=== PATIENT | female | born 1975 | race Hispanic/Latino ===

== ENCOUNTER 2018-05-13 08:34 | Inpatient (IN) | payer OTHER ==
[2018-05-13] MEDS ORDERED: NACL 0.45% 500 ML IV SCH (09:00)
[2018-05-13] MEDS ORDERED: NACL 0.9% 500 ML 500 ML ONE (09:52)
[2018-05-13] MEDS: NACL 0.9% 500 ML 500 ML IV SCH ×2 (10:05→21:00)
[2018-05-13] MEDS ORDERED: NITROSTAT SL ONE (10:20)
[2018-05-13] MEDS ORDERED: ATROPINE 0.1% (CARDIAC) ONE (10:20)
[2018-05-13] MEDS ORDERED: TYLENOL PO PRN ×2 (11:08→20:39)
[2018-05-13] MEDS ORDERED: ZOFRAN IV PRN ×2 (11:08→20:39)
--- NOTE | 2018-05-13 11:08 | Short Stay Summary ---
Short Stay Documentation Date of service: 05/13/18 - History H&P: obtained from office - Allergies and Medications Current Medications: Allergies sulfamethoxazole [From Bactrim] Adverse Reaction (Verified 05/13/18 09:07) Nausea tramadol [From Ultram] Adverse Reaction (Verified 05/13/18 09:07) Nausea trimethoprim [From Bactrim] Adverse Reaction (Verified 05/13/18 09:07) Nausea Home Medications Medication Instructions Recorded Confirmed Last Taken Type Aspirin [Aspirin BABY CHEW TAB] 81 mg PO DAILY 05/13/18 05/13/18 05/12/18 History 81mg Baclofen 1.5 tab PO TID 05/13/18 05/13/18 05/12/18 History 1.5 tab Bumetanide [Bumex 1 mg tab] 1 mg PO DAILY 05/13/18 05/13/18 05/12/18 History [address] [Depakote Dr] 2 tab PO BID 05/13/18 05/13/18 05/12/18 History 2 tabs Gabapentin [Neurontin] 100 mg PO TID 05/13/18 05/13/18 05/12/18 History 100mg Levothyroxine [Synthroid] 50 mcg PO QAM 05/13/18 05/13/18 05/12/18 History 50mcg Metoprolol [Lopressor TAB] 50 mg PO BID 05/13/18 05/13/18 05/12/18 History 50mg Multivit with Iron,Minerals 1 tab PO DAILY 05/13/18 05/13/18 05/12/18 History [Spectravite Senior] 81mg QUEtiapine [SEROquel] 300 mg PO HS 05/13/18 05/13/18 05/12/18 History 300mg Triamterene/Hydrochlorothiazid 1 tab PO DAILY 05/13/18 05/13/18 05/12/18 History [Triamterene-Hctz 37.5-25 mg Tb] 1 tab Vilazodone HCl [Viibryd] 40 mg PO DAILY 05/13/18 05/13/18 05/12/18 History 40mg clonazePAM [Clonazepam] 0.5 mg PO BID 05/13/18 05/13/18 05/12/18 History 0.5mg lamoTRIgine [LaMICtal] 300 mg PO BID 05/13/18 05/13/18 05/12/18 History 300mg traZODone [Desyrel] 100 mg PO HS 05/13/18 05/13/18 05/12/18 History 100mg Active Medications Sodium Chloride (Nacl 0.9% 500 Ml) 500 mls @ 50 mls/hr IV DIRECT HEMANT Last Admin: 05/13/18 10:05 Dose: 50 mls/hr Documented by: - Physical exam General appearance: no acute distress Integumentary: no rash HEENT: Atraumatic Lungs: Clear to auscultation Breasts: deferred Heart: Regular rate Gastrointestinal: normal Female Genitourinary: deferred Rectal Exam: deferred Extremities: no ischemia Neurological: Normal gait - Brief post op/procedure progress note Date of procedure: 05/13/18 Pre-op diagnosis: Syncope Post-op diagnosis: same Procedure: Tilt table test Anesthesia: none Findings: See report Surgeon: KARAN YANEZ Estimated blood loss: none Pathology: none Condition: stable - Hospital course Hospital course: Uneventful - Disposition Condition at discharge: Good Disposition: DC-01 TO HOME OR SELFCARE Short Stay Discharge Plan Activity: advance as tolerated Weight Bearing Status: Weight Bear as Tolerated Diet: regular Follow up with: PRIMARY CAREMD [Primary Care Provider] - 7 Days
[2018-05-13] MEDS ORDERED: SUBLIMAZE IV ONE (12:38)
[2018-05-13 13:24] LABS: Basophils % (Auto) 0.7 % (0.0-1.8); Eosinophils # (Auto) 0.1 K/mm3 (0.0-0.4); Eosinophils % (Auto) 0.8 % (0.0-4.3); Hematocrit 33.3 % (30.3-42.9); Hemoglobin 11.6 gm/dl (10.1-14.3); Lymphocytes # (Auto) 2.2 K/mm3 (1.2-5.4); Lymphocytes % (Auto) 32.3 % (13.4-35.0); Mean Corpuscular HGB Conc 35 % (30-34); Mean Corpuscular Volume 94 fl (79-97); Monocytes # (Auto) 1.1 K/mm3 (0.0-0.8); Monocytes % (Auto) 15.7 % (0.0-7.3); Platelet Count 227 K/mm3 (140-440); Red Blood Count 3.55 M/mm3 (3.65-5.03); Red Cell Distribution Width 13.9 % (13.2-15.2)
[2018-05-13 13:45] LABS: Alanine Aminotransferase 20 units/L (7-56); Albumin 3.3 g/dL (3.9-5); BUN/Creatinine Ratio 30; Blood Urea Nitrogen 21 mg/dL (7-17); Calcium 8.2 mg/dL (8.4-10.2); Hemolysis Index 21
--- NOTE | 2018-05-13 13:45 | Procedure Note ---
PROCEDURE: Tilt table test. INDICATION: Syncope. ORDERING PHYSICIAN: Gunner Irene MD DESCRIPTION OF PROCEDURE: After obtaining the consent, the patient was brought to the systems testing laboratory technician area and was secured on the tilt table test. Supine blood pressure was 134/83 with a supine heart rate of 74 beats per minute. The patient was tilted to 85 degrees from horizontal. One minute after tilting, her blood pressure was 141/79 with a heart rate of 77 beats per minute arguing against orthostatic hypotension. The patient was kept in the upright position for 10 minutes. At the end of the 10 minutes, her blood pressure was 131/83 with a heart rate of 79. She was then given 0.4 mg of sublingual nitroglycerin. Her lowest recorded blood pressure after nitroglycerin was 117/78 and the highest recorded heart rate was 88 beats per minute, sinus rhythm. The patient did not lose consciousness. IMPRESSION: This is a negative tilt table test with no evidence of a cardioinhibitory or vasodepressor response. Also, no evidence of orthostatic hypotension. RECOMMENDATION: Follow up with referring traffic recorder. JOB# [id number] CHLOE/ADRIAN
[2018-05-13] MEDS ORDERED: REGLAN IV ONE (15:03)
[2018-05-13] MEDS ORDERED: BENADRYL IV ONE (15:04)
[2018-05-13] MEDS ORDERED: DECADRON IV ONE (15:04)
[2018-05-13] MEDS ORDERED: TORADOL IV ONE (15:04)
--- NOTE | 2018-05-13 15:44 | Cat Scan Report ---
FINAL REPORT EXAM: CT HEAD/BRAIN WO CON HISTORY: syncope TECHNIQUE: CT examination of the head without IV contrast PRIORS: None. FINDINGS: No acute air-fluid level visualized in the included air-filled sinuses. Bone windows demonstrate no acute fracture. There is ventricular and sulcal prominence suggesting mild global cerebrocortical atrophy. The brain contains no mass, mass effect, hemorrhage, or acute infarct. There is no extra-axial intracranial bleed, brain bleed, or midline shift. IMPRESSION: No acute CVA, intracranial bleed, or brain mass
--- NOTE | 2018-05-13 15:45 | Emergency Department Report ---
ED General Adult HPI - General Chief complaint: Neuro Symptoms/Deficit Time Seen by Provider: 05/13/18 11:45 Source: RN notes reviewed, old records reviewed Mode of arrival: Stretcher Limitations: No Limitations - History of Present Illness Initial comments: Patient is a 42-year-old female past medical history of syncope who presents with syncopal episode after tilt table test. Patient was seen today for her syncopal episodes that she's had for the past month. She had tilt table test and then she had a syncopal event. She states that she is unable to open her eyes and that she has right neck pain. She also has a headache that is a 8 out 10 located to the front of her head. Nothing makes it better and nothing makes worse. Patient has no nausea no vomiting. Severity scale (0 -10): 10 - Related Data Home Medications Medication Instructions Recorded Confirmed Last Taken Aspirin [Aspirin BABY CHEW TAB] 81 mg PO DAILY 05/13/18 05/13/18 05/12/18 81mg Baclofen 1.5 tab PO TID 05/13/18 05/13/18 05/12/18 1.5 tab Bumetanide [Bumex 1 mg tab] 1 mg PO DAILY 05/13/18 05/13/18 05/12/18 1 tab Divalproex [Depleighton Mojica] 2 tab PO BID 05/13/18 05/13/18 05/12/18 2 tabs Gabapentin [Neurontin] 100 mg PO TID 05/13/18 05/13/18 05/12/18 100mg Levothyroxine [Synthroid] 50 mcg PO QAM 05/13/18 05/13/18 05/12/18 50mcg Metoprolol [Lopressor TAB] 50 mg PO BID 05/13/18 05/13/18 05/12/18 50mg Multivit with Iron,Minerals 1 tab PO DAILY 05/13/18 05/13/18 05/12/18 [Spectravite Senior] 81mg QUEtiapine [SEROquel] 300 mg PO HS 05/13/18 05/13/18 05/12/18 300mg Triamterene/Hydrochlorothiazid 1 tab PO DAILY 05/13/18 05/13/18 05/12/18 [Triamterene-Hctz 37.5-25 mg Tb] 1 tab Vilazodone HCl [Viibryd] 40 mg PO DAILY 05/13/18 05/13/18 05/12/18 40mg clonazePAM [Clonazepam] 0.5 mg PO BID 05/13/18 05/13/18 05/12/18 0.5mg lamoTRIgine [LaMICtal] 300 mg PO BID 05/13/18 05/13/18 05/12/18 300mg traZODone [Desyrel] 100 mg PO HS 05/13/18 05/13/18 05/12/18 100mg Allergies Allergy/AdvReac Type Severity Reaction Status Date / Time sulfamethoxazole AdvReac Nausea Verified 05/13/18 09:07 [From Bactrim] tramadol [From Ultram] AdvReac Nausea Verified 05/13/18 09:07 trimethoprim [From Bactrim] AdvReac Nausea Verified 05/13/18 09:07 ED Review of Systems ROS: Stated complaint: Other details as noted in HPI Constitutional: denies: chills, fever Eyes: denies: eye pain, eye discharge, vision change ENT: denies: ear pain, throat pain Respiratory: denies: cough, shortness of breath, wheezing Cardiovascular: denies: chest pain, palpitations Endocrine: no symptoms reported Gastrointestinal: denies: abdominal pain, nausea, diarrhea Genitourinary: denies: urgency, dysuria, discharge Musculoskeletal: myalgia. denies: back pain, joint swelling, arthralgia Skin: denies: rash, lesions Neurological: headache. denies: weakness, paresthesias Psychiatric: denies: anxiety, depression Hematological/Lymphatic: denies: easy bleeding, easy bruising ED Past Medical Hx - Past Medical History Hx Hypertension: Yes Hx Seizures: Yes - Social History Smoking Status: Current Every Day Smoker - Medications Home Medications: Home Medications Medication Instructions Recorded Confirmed Last Taken Type Aspirin [Aspirin BABY CHEW TAB] 81 mg PO DAILY 05/13/18 05/13/18 05/12/18 History 81mg Baclofen 1.5 tab PO TID 05/13/18 05/13/18 05/12/18 History 1.5 tab Bumetanide [Bumex 1 mg tab] 1 mg PO DAILY 05/13/18 05/13/18 05/12/18 History 1 tab Divalproex [Lizz Mojica] 2 tab PO BID 05/13/18 05/13/18 05/12/18 History 2 tabs Gabapentin [Neurontin] 100 mg PO TID 05/13/18 05/13/18 05/12/18 History 100mg Levothyroxine [Synthroid] 50 mcg PO QAM 05/13/18 05/13/18 05/12/18 History 50mcg Metoprolol [Lopressor TAB] 50 mg PO BID 05/13/18 05/13/18 05/12/18 History 50mg Multivit with Iron,Minerals 1 tab PO DAILY 05/13/18 05/13/18 05/12/18 History [Spectravite Senior] 81mg QUEtiapine [SEROquel] 300 mg PO HS 05/13/18 05/13/18 05/12/18 History 300mg Triamterene/Hydrochlorothiazid 1 tab PO DAILY 05/13/18 05/13/18 05/12/18 History [Triamterene-Hctz 37.5-25 mg Tb] 1 tab Vilazodone HCl [Viibryd] 40 mg PO DAILY 05/13/18 05/13/18 05/12/18 History 40mg clonazePAM [Clonazepam] 0.5 mg PO BID 05/13/18 05/13/18 05/12/18 History 0.5mg lamoTRIgine [LaMICtal] 300 mg PO BID 05/13/18 05/13/18 05/12/18 History 300mg traZODone [Desyrel] 100 mg PO HS 05/13/18 05/13/18 05/12/18 History 100mg ED Physical Exam - General Limitations: No Limitations General appearance: alert, in no apparent distress - Head Head exam: Present: atraumatic, normocephalic - Eye Eye exam: Present: normal appearance - ENT ENT exam: Present: mucous membranes moist - Neck Neck exam: Present: normal inspection - Respiratory Respiratory exam: Present: normal lung sounds bilaterally. Absent: respiratory distress - Cardiovascular Cardiovascular Exam: Present: regular rate, normal rhythm. Absent: systolic murmur, diastolic murmur, rubs, gallop - GI/Abdominal GI/Abdominal exam: Present: soft, normal bowel sounds - Extremities Exam Extremities exam: Present: normal inspection - Back Exam Back exam: Present: normal inspection - Neurological Exam Neurological exam: Present: alert, oriented X3 - Psychiatric Psychiatric exam: Present: normal affect, normal mood - Skin Skin exam: Present: warm, dry, intact, normal color. Absent: rash ED Course Vital Signs 05/13/18 05/13/18 05/13/18 09:19 09:29 11:31 Temperature 98.2 F Pulse Rate 74 73 Respiratory 20 18 Rate Respiratory 15 Rate [Back] Blood Pressure Blood Pressure 123/67 [Left] O2 Sat by Pulse 100 100 Oximetry 05/13/18 05/13/18 05/13/18 11:45 11:47 11:49 Temperature 97.7 F 97.7 F Pulse Rate 70 73 73 Respiratory 26 H 12 Rate Respiratory Rate [Back] Blood Pressure 127/72 127/72 Blood Pressure 127/72 [Left] O2 Sat by Pulse 96 100 100 Oximetry 05/13/18 05/13/18 05/13/18 12:00 12:15 12:31 Temperature Pulse Rate 81 77 78 Respiratory 8 L 13 11 L Rate Respiratory Rate [Back] Blood Pressure 130/81 130/81 127/72 Blood Pressure [Left] O2 Sat by Pulse 100 100 Oximetry 05/13/18 05/13/18 05/13/18 12:45 13:00 13:15 Temperature Pulse Rate 79 75 75 Respiratory 13 19 18 Rate Respiratory Rate [Back] Blood Pressure 127/72 118/63 118/63 Blood Pressure [Left] O2 Sat by Pulse 100 99 99 Oximetry 05/13/18 05/13/18 05/13/18 13:31 13:47 14:00 Temperature Pulse Rate 80 75 74 Respiratory 14 17 21 Rate Respiratory Rate [Back] Blood Pressure 130/81 130/81 110/65 Blood Pressure [Left] O2 Sat by Pulse 97 98 100 Oximetry 05/13/18 05/13/18 05/13/18 14:15 14:31 14:45 Temperature Pulse Rate 69 72 67 Respiratory 17 23 14 Rate Respiratory Rate [Back] Blood Pressure 110/65 118/63 118/63 Blood Pressure [Left] O2 Sat by Pulse 98 97 97 Oximetry 05/13/18 05/13/18 05/13/18 15:00 15:15 15:31 Temperature Pulse Rate 75 72 68 Respiratory 13 19 24 Rate Respiratory Rate [Back] Blood Pressure 111/67 111/67 110/65 Blood Pressure [Left] O2 Sat by Pulse 100 99 98 Oximetry ED Medical Decision Making - Lab Data Result diagrams: 05/13/18 13:07 05/13/18 13:07 Lab Results 05/13/18 05/13/18 Range/Units 13:07 13:07 WBC 6.9 (4.5-11.0) K/mm3 RBC 3.55 L (3.65-5.03) M/mm3 Hgb 11.6 (10.1-14.3) gm/dl Hct 33.3 (30.3-42.9) % MCV 94 (79-97) fl MCH 33 H (28-32) pg MCHC 35 H (30-34) % RDW 13.9 (13.2-15.2) % Plt Count 227 (140-440) K/mm3 Lymph % (Auto) 32.3 (13.4-35.0) % [place] % (Auto) 15.7 H (0.0-7.3) % Eos % (Auto) 0.8 (0.0-4.3) % Baso % (Auto) 0.7 (0.0-1.8) % Lymph # 2.2 (1.2-5.4) K/mm3 [place] # 1.1 H (0.0-0.8) K/mm3 Eos # 0.1 (0.0-0.4) K/mm3 Baso # 0.0 (0.0-0.1) K/mm3 Seg Neutrophils % 50.5 (40.0-70.0) % Seg Neutrophils # 3.5 (1.8-7.7) K/mm3 Sodium 140 (137-145) mmol/L Potassium 3.8 (3.6-5.0) mmol/L Chloride 104.1 (98-107) mmol/L Carbon Dioxide 27 (22-30) mmol/L Anion Gap 13 mmol/L BUN 21 H (7-17) mg/dL Creatinine 0.7 (0.7-1.2) mg/dL Estimated GFR > 60 ml/min BUN/Creatinine Ratio 30 % Glucose 74 (65-100) mg/dL Calcium 8.2 L (8.4-10.2) mg/dL Total Bilirubin 0.30 (0.1-1.2) mg/dL AST 19 (5-40) units/L ALT 20 (7-56) units/L Alkaline Phosphatase 40 (35-129) units/L Total Protein 5.1 L (6.3-8.2) g/dL Albumin 3.3 L (3.9-5) g/dL Albumin/Globulin Ratio 1.8 % - EKG Data -: EKG Interpreted by Me - EKG Data 05/13/18 16:00 Age he shows normal sinus rhythm no ST segment elevation or T wave inversion normal axis - Radiology Data Radiology results: report reviewed, image reviewed CT head: Shows no acute intercranial process - Medical Decision Making Cdx: Vasovagal syncope ddx: Stress reaction, electrolyte abnormality I will get ct head, IV pain meds, blood work and ekg Patient's blood work is unremarkable I will send patient home. Critical care attestation.: If time is entered above; I have spent that time in minutes in the direct care of this critically ill patient, excluding procedure time. ED Disposition Clinical Impression: Vasovagal syncope Disposition: DC-01 TO HOME OR SELFCARE Is pt being admited?: No Does the pt Need Aspirin: No Condition: Good Instructions: Syncope (ED) Referrals: PRIMARY CARE, [Referring] - 7 Days
[2018-05-13] MEDS ORDERED: NACL 0.9% 1000 ML 1,000 ML ONE (16:08)
[2018-05-13] MEDS ORDERED: NACL 0.9% 1000 ML 1,000 ML IV ONE (16:17)
--- NOTE | 2018-05-13 20:20 | Magnetic Resonance Report ---
FINAL REPORT EXAM: MR BRAIN WO CON HISTORY: left sided numbnessER INPATIENT TECHNIQUE: MRI brain: Axial T1, T2 , FLAIR, diffusion, and gradient echo axial Sagittal T1 PRIORS: CT of the head performed on the same day FINDINGS: The cerebral hemispheres appear normal without focal lesions. The ventricles and sulci appear normal for age. There are no abnormal extra-axial fluid collections. There is no restricted diffusion. There is no evidence of acute intracranial hemorrhage. The brainstem and cerebellum appear normal. The vis ualized orbits and visualized paranasal sinuses are unremarkable. IMPRESSION: Normal MRI of the brain without contrast.
--- NOTE | 2018-05-13 20:24 | Magnetic Resonance Report ---
FINAL REPORT EXAM: MR MRA/MRV NECK WO CON HISTORY: left sided weaknessER inpatient TECHNIQUE: 2-D and 3-D [id number] images of the neck were obtained from the thoracic inlet throu gh the [place] of [place]. MIP rotatory images were generated and viewed. PRIORS: None. FINDINGS: FINDINGS: The bilateral common carotid, internal carotid and external carotid arteries appear normal and patent. The vertebral arteries appear normal. There is no significant ICA stenosis. Soft tissues are unremarkable. IMPRESSION: Negative magnetic resonance angiogram of the neck.
--- NOTE | 2018-05-13 20:27 | Magnetic Resonance Report ---
FINAL REPORT EXAM: MR MRA/MRV HEAD WO CON HISTORY: left sided weaknessER INPATIENT TECHNIQUE: Magnetic resonance angiogram (MRA) 3-D [id number] (TOF) volume acquisitionof the circ le of [place] with axial source images. Multiple maximum intensity projection (MIP) images constructed . PRIORS: None. FINDINGS: There is normal flow within the bilateral internal carotid arteries. There is normal bifurcation into the middle and anterior cerebral arteries. There is no evidence of stenosis or occlusion of the larg e vessels or branch vessels. The vertebrobasilar system is within normal limits. There is no evidence of aneurysm. IMPRESSION: Normal magnetic resonance angiogram of the brain.
[2018-05-13] MEDS ORDERED: SODIUM CHLORIDE FLUSH SYRINGE 10 ML IV PRN (20:39)
[2018-05-13] MEDS ORDERED: DILAUDID IV PRN (20:39)
[2018-05-13] MEDS ORDERED: PERCOCET 5/325 PO PRN (20:39)
[2018-05-13] MEDS ORDERED: NON-FORMULARY (Vilazodone Hcl [Viibryd] 40 MG) PO SCH (21:00)
[2018-05-13] MEDS: LOVENOX SUB-Q SCH (21:01)
--- NOTE | 2018-05-13 21:15 | History and Physical Report ---
History of Present Illness Date of examination: 05/13/18 Date of admission: 05/13/18 16:50 Chief complaint: Passing out every month for the last 6 months Last episode was one week ago History of present illness: 42-year-old female with history of hypertension, seizure disorder, hypothyroidism and psychiatric problems comes in for passing out frequently for the last 6 months. Passed out about 6-8 times. Once while driving. Patient is advised not to drive. Patient had tilt table test which was negative. Patient had multiple MRIs of neck MRA brain MRI head MRA and head CT which are negative. No chest pain. No exacerbating or relieving factors. Past Medical History Hx Hypertension: Yes Hx Seizures: Yes Social History Smoking Status: Current Every Day Smoker Surgical history N/a Family history Htn - Medications Home Medications: Home Medications Medication Instructions Recorded Confirmed Last Taken Type Aspirin [Aspirin BABY CHEW TAB] 81 mg PO DAILY 05/13/18 05/13/18 05/12/18 History 81mg Baclofen 1.5 tab PO TID 05/13/18 05/13/18 05/12/18 History 1.5 tab Bumetanide [Bumex 1 mg tab] 1 mg PO DAILY 05/13/18 05/13/18 05/12/18 [address] [Depakote Dr] 2 tab PO BID 05/13/18 05/13/18 05/12/18 History 2 tabs Gabapentin [Neurontin] 100 mg PO TID 05/13/18 05/13/18 05/12/18 History 100mg Levothyroxine [Synthroid] 50 mcg PO QAM 05/13/18 05/13/18 05/12/18 History 50mcg Metoprolol [Lopressor TAB] 50 mg PO BID 05/13/18 05/13/18 05/12/18 History 50mg Multivit with Iron,Minerals 1 tab PO DAILY 05/13/18 05/13/18 05/12/18 History [Spectravite Senior] 81mg QUEtiapine [SEROquel] 300 mg PO HS 05/13/18 05/13/18 05/12/18 History 300mg Triamterene/Hydrochlorothiazid 1 tab PO DAILY 05/13/18 05/13/18 05/12/18 History [Triamterene-Hctz 37.5-25 mg Tb] 1 tab Vilazodone HCl [Viibryd] 40 mg PO DAILY 05/13/18 05/13/18 05/12/18 History 40mg clonazePAM [Clonazepam] 0.5 mg PO BID 05/13/18 05/13/18 05/12/18 History 0.5mg lamoTRIgine [LaMICtal] 300 mg PO BID 05/13/18 05/13/18 05/12/18 History 300mg traZODone [Desyrel] 100 mg PO HS 05/13/18 05/13/18 05/12/18 History 100mg Review of Systems ROS: Stated complaint: Other details as noted in HPI Constitutional: denies: chills, fever Eyes: denies: eye pain, eye discharge, vision change ENT: denies: ear pain, throat pain Respiratory: denies: cough, shortness of breath, wheezing Cardiovascular: denies: chest pain, palpitations Endocrine: no symptoms reported Gastrointestinal: denies: abdominal pain, nausea, diarrhea Genitourinary: denies: urgency, dysuria, discharge Musculoskeletal: myalgia. denies: back pain, joint swelling, arthralgia Skin: denies: rash, lesions Neurological: headache. denies: weakness, paresthesias Psychiatric: denies: anxiety, depression Hematological/Lymphatic: denies: easy bleeding, easy bruising Medications and Allergies Allergies Allergy/AdvReac Type Severity Reaction Status Date / Time sulfamethoxazole AdvReac Nausea Verified 05/13/18 09:07 [From Bactrim] tramadol [From Ultram] AdvReac Nausea Verified 05/13/18 09:07 trimethoprim [From Bactrim] AdvReac Nausea Verified 05/13/18 09:07 Home Medications Medication Instructions Recorded Confirmed Last Taken Type Aspirin [Aspirin BABY CHEW TAB] 81 mg PO DAILY 05/13/18 05/13/18 05/12/18 History 81mg Baclofen 1.5 tab PO TID 05/13/18 05/13/18 05/12/18 History 1.5 tab Bumetanide [Bumex 1 mg tab] 1 mg PO DAILY 05/13/18 05/13/18 05/12/18 History 1 tab Divalproex [Lizz [place]] 2 tab PO BID 05/13/18 05/13/18 05/12/18 History 2 tabs Gabapentin [Neurontin] 100 mg PO TID 05/13/18 05/13/18 05/12/18 History 100mg Levothyroxine [Synthroid] 50 mcg PO QAM 05/13/18 05/13/18 05/12/18 History 50mcg Metoprolol [Lopressor TAB] 50 mg PO BID 05/13/18 05/13/18 05/12/18 History 50mg Multivit with Iron,Minerals 1 tab PO DAILY 05/13/18 05/13/18 05/12/18 History [Spectravite Senior] 81mg QUEtiapine [SEROquel] 300 mg PO HS 05/13/18 05/13/18 05/12/18 History 300mg Triamterene/Hydrochlorothiazid 1 tab PO DAILY 05/13/18 05/13/18 05/12/18 History [Triamterene-Hctz 37.5-25 mg Tb] 1 tab Vilazodone HCl [Viibryd] 40 mg PO DAILY 05/13/18 05/13/18 05/12/18 History 40mg clonazePAM [Clonazepam] 0.5 mg PO BID 05/13/18 05/13/18 05/12/18 History 0.5mg lamoTRIgine [LaMICtal] 300 mg PO BID 05/13/18 05/13/18 05/12/18 History 300mg traZODone [Desyrel] 100 mg PO HS 05/13/18 05/13/18 05/12/18 History 100mg Active Meds: Active Medications Acetaminophen (Tylenol) 1,000 mg PO Q6H PRN PRN Reason: Pain, Mild (1-3) Acetaminophen (Tylenol) 650 mg PO Q4H PRN PRN Reason: Pain MILD(1-3)/Fever >100.5/GOODEN Aspirin (Baby Aspirin) 81 mg PO DAILY [facility] Bumetanide (Bumex) 1 mg PO DAILY [facility] Clonazepam (Klonopin) 0.5 mg PO BID [facility] Divalproex Sodium (Depakote Dr) mg PO BID [facility] Enoxaparin Sodium (Lovenox) 40 mg SUB-Q QDAY [facility] Last Admin: 05/13/18 21:01 Dose: 40 mg Documented by: Famotidine (Pepcid) 20 mg PO BID [facility] Gabapentin (Neurontin) 100 mg PO TID [facility] Hydromorphone HCl (Dilaudid) 0.5 mg IV Q3H PRN PRN Reason: Pain , Severe (7-10) Sodium Chloride (Nacl 0.9% 500 Ml) 500 mls @ 50 mls/hr IV DIRECT [facility] Last Admin: 05/13/18 21:00 Dose: 50 mls/hr Documented by: Sodium Chloride (Nacl 0.9% 1000 Ml) 1,000 mls @ 75 mls/hr IV DIRECT [facility] Lamotrigine (Lamictal) 300 mg PO BID [facility] Levothyroxine Sodium (Synthroid) 50 mcg PO QAM [facility] Miscellaneous Medication (Baclofen [Baclofen]) 10 mg PO BID [facility] Miscellaneous Medication (Vilazodone Hcl [Viibryd]) 40 mg PO DAILY [facility] Ondansetron HCl (Zofran) 4 mg IV Q8H PRN PRN Reason: Nausea And Vomiting Ondansetron HCl (Zofran) 4 mg IV Q8H PRN PRN Reason: Nausea And Vomiting Oxycodone/Acetaminophen (Percocet 5/325) 1 tab PO Q6H PRN PRN Reason: Pain, Moderate (4-6) Quetiapine Fumarate (Seroquel) 300 mg PO HS [facility] Sodium Chloride (Sodium Chloride Flush Syringe 10 Ml) 10 ml IV BID [facility] Sodium Chloride (Sodium Chloride Flush Syringe 10 Ml) 10 ml IV PRN PRN PRN Reason: LINE FLUSH Trazodone HCl (Desyrel) 100 mg PO HS [facility] Triamterene/HCTZ (Maxzide-25) 1 each PO DAILY [facility] Exam - Constitutional Vitals: Temp Pulse Resp BP Pulse Ox 97.7 F 62 14 99/59 98 05/13/18 11:49 05/13/18 16:45 05/13/18 16:45 05/13/18 16:45 05/13/18 16:45 General appearance: Present: no acute distress, well-nourished - EENT Eyes: Present: PERRL ENT: hearing intact, clear oral mucosa - Neck Neck: Present: supple, normal ROM - Respiratory Respiratory effort: normal Respiratory: bilateral: CTA - Cardiovascular Heart rate: 78 Rhythm: regular Heart Sounds: Present: S1 & S2. Absent: rub, click - Extremities Extremities: no ischemia, pulses intact, pulses symmetrical, No edema Peripheral Pulses: within normal limits - Abdominal General gastrointestinal: Present: soft, non-tender, non-distended, normal bowel sounds Female genitourinary: Present: normal - Rectal Rectal Exam: deferred - Integumentary Integumentary: Present: clear, warm, dry - Musculoskeletal Musculoskeletal: gait normal, strength equal bilaterally - Psychiatric Psychiatric: appropriate mood/affect, intact judgment & insight - Neurologic Neurologic: CNII-XII intact, moves all extremities - Allied Health Allied health notes reviewed: nursing, case management Results - Labs CBC & Chem 7: 05/13/18 13:07 05/13/18 13:07 Labs: Laboratory Last Values WBC 6.9 K/mm3 (4.5-11.0) 05/13/18 13:07 RBC 3.55 M/mm3 (3.65-5.03) L 05/13/18 13:07 Hgb 11.6 gm/dl (10.1-14.3) 05/13/18 13:07 Hct 33.3 % (30.3-42.9) 05/13/18 13:07 MCV 94 fl (79-97) 05/13/18 13:07 MCH 33 pg (28-32) H 05/13/18 13:07 MCHC 35 % (30-34) H 05/13/18 13:07 RDW 13.9 % (13.2-15.2) 05/13/18 13:07 Plt Count 227 K/mm3 (140-440) 05/13/18 13:07 Lymph % (Auto) 32.3 % (13.4-35.0) 05/13/18 13:07 [place] % (Auto) 15.7 % (0.0-7.3) H 05/13/18 13:07 Eos % (Auto) 0.8 % (0.0-4.3) 05/13/18 13:07 Baso % (Auto) 0.7 % (0.0-1.8) 05/13/18 13:07 Lymph # 2.2 K/mm3 (1.2-5.4) 05/13/18 13:07 [place] # 1.1 K/mm3 (0.0-0.8) H 05/13/18 13:07 Eos # 0.1 K/mm3 (0.0-0.4) 05/13/18 13:07 Baso # 0.0 K/mm3 (0.0-0.1) 05/13/18 13:07 Seg Neutrophils % 50.5 % (40.0-70.0) 05/13/18 13:07 Seg Neutrophils # 3.5 K/mm3 (1.8-7.7) 05/13/18 13:07 Sodium 140 mmol/L (137-145) 05/13/18 13:07 Potassium 3.8 mmol/L (3.6-5.0) 05/13/18 13:07 Chloride 104.1 mmol/L (98-107) 05/13/18 13:07 Carbon Dioxide 27 mmol/L (22-30) 05/13/18 13:07 Anion Gap 13 mmol/L 05/13/18 13:07 BUN 21 mg/dL (7-17) H 05/13/18 13:07 Creatinine 0.7 mg/dL (0.7-1.2) 05/13/18 13:07 Estimated GFR > 60 ml/min 05/13/18 13:07 BUN/Creatinine Ratio 30 % 05/13/18 13:07 Glucose 74 mg/dL (65-100) 05/13/18 13:07 Calcium 8.2 mg/dL (8.4-10.2) L 05/13/18 13:07 Total Bilirubin 0.30 mg/dL (0.1-1.2) 05/13/18 13:07 AST 19 units/L (5-40) 05/13/18 13:07 ALT 20 units/L (7-56) 05/13/18 13:07 Alkaline Phosphatase 40 units/L (35-129) 05/13/18 13:07 Total Protein 5.1 g/dL (6.3-8.2) L 05/13/18 13:07 Albumin 3.3 g/dL (3.9-5) L 05/13/18 13:07 Albumin/Globulin Ratio 1.8 % 05/13/18 13:07 - Imaging and Cardiology EKG: report reviewed (normal sinus rhythm heart rate of 73/m no arrhythmias no LVH) Imaging and Cardiology: Neck MRA IMPRESSION: Negative magnetic resonance angiogram of neck Brain MRI IMPRESSION: No acute CVA, intracranial bleed, or brain mass Head MRA IMPRESSION: Normal magnetic resonance angiogram of the brain. Head CT IMPRESSION: No acute CVA, intracranial bleed, or brain mass Assessment and Plan Advance Directives: Yes (full code) VTE prophylaxis?: Chemical Plan of care discussed with patient/family: Yes - Patient Problems (1) Recurrent syncope Current Visit: Yes Status: Acute Plan to address problem: Workup negative till now Will get Lexiscan in the morning An echocardiogram (2) Hypertension Current Visit: Yes Status: Chronic Qualifiers: Hypertension type: essential hypertension Qualified Code(s): I10 - Essential (primary) hypertension Plan to address problem: We will decrease the metoprolol to once a day We will hold the triamterene and hydrochlorothiazide (3) Seizure disorder Current Visit: Yes Status: Chronic Plan to address problem: Continue Depakote Check Depakote level (4) Hypothyroidism (acquired) Current Visit: Yes Status: Chronic Plan to address problem: Continue Synthroid (5) Bipolar disorder Current Visit: Yes Status: Chronic Qualifiers: Active/Remission status: in remission of unspecified degree Qualified Code(s): F31.70 - Bipolar disorder, currently in remission, most recent episode unspecified Plan to address problem: Continue Seroquel and Vybrid (6) DVT prophylaxis Current Visit: Yes Status: Acute Plan to address problem: Continue Lovenox and GI prophylaxis
[2018-05-13] MEDS ORDERED: NACL 0.9% 1000 ML 1,000 ML IV SCH (22:00)
[2018-05-13] MEDS ORDERED: LOPRESSOR PO SCH (22:00)
[2018-05-13] MEDS ORDERED: BUMEX PO SCH (22:00)
[2018-05-13] MEDS ORDERED: MAXZIDE-25 PO SCH (22:00)
[2018-05-13] MEDS ORDERED: NON-FORMULARY (Baclofen [Baclofen] 10 MG) PO SCH (22:00)
[2018-05-14] MEDS: LIORESAL PO SCH ×3 (00:02→23:08)
[2018-05-14] MEDS: BABY ASPIRIN PO SCH ×2 (00:04→13:27)
[2018-05-14] MEDS: DESYREL PO SCH (00:04)
[2018-05-14] MEDS: LaMICtal PO SCH ×3 (00:05→23:09)
[2018-05-14] MEDS: SODIUM CHLORIDE FLUSH SYRINGE 10 ML IV SCH ×2 (00:06→10:53)
[2018-05-14] MEDS: PEPCID PO SCH ×3 (00:06→23:09)
[2018-05-14] MEDS: SYNTHROID PO SCH (06:09)
[2018-05-14 06:37] LABS: Basophils % (Auto) 0.2 % (0.0-1.8); Hematocrit 31.8 % (30.3-42.9); Hemoglobin 11.1 gm/dl (10.1-14.3); Lymphocytes # (Auto) 1.1 K/mm3 (1.2-5.4); Lymphocytes % (Auto) 18.3 % (13.4-35.0); Mean Corpuscular HGB Conc 35 % (30-34); Mean Corpuscular Volume 92 fl (79-97); Monocytes # (Auto) 0.8 K/mm3 (0.0-0.8); Monocytes % (Auto) 12.7 % (0.0-7.3); Platelet Count 227 K/mm3 (140-440); Red Blood Count 3.45 M/mm3 (3.65-5.03); Red Cell Distribution Width 14.2 % (13.2-15.2)
[2018-05-14 06:54] LABS: Alanine Aminotransferase 17 units/L (7-56); BUN/Creatinine Ratio 44; Blood Urea Nitrogen 22 mg/dL (7-17); Calcium 7.6 mg/dL (8.4-10.2); Hemolysis Index 7
[2018-05-14] MEDS ORDERED: LOPRESSOR PO SCH (08:00)
--- NOTE | 2018-05-14 10:50 | Progress Note ---
Assessment and Plan Episodes of recurrent weakness/impaired consciousness/syncope which have not correlated with any heart rhythm or cardiac abnormality. Negative tilt table test 05/13/18 Echo 11/2017 revealed normal EF with mild-mod AI No arrhythmia noted on previous event monitoring at time of syncopal events Seizure disorder H/O Substance abuse Per patient last used methylamphetamines 2 months ago. Recommend: No further cardiac testing at this time Consider neurology and psychiatric evaluation Subjective Date of service: 05/14/18 Interval history: Pt had period of generalized weakness and inability to move after tilt table test. No BP or heart rhythm abnormalities were noted at the time. She is feeling better now. Objective Vital Signs Temp Pulse Pulse Resp Resp BP BP 05/14/18 05:32 97.6 F 86 16 80/43 05/14/18 01:16 18 05/14/18 00:16 18 05/13/18 23:54 98.1 F 89 18 97/52 05/13/18 23:35 89 97/52 05/13/18 22:00 76 18 18 05/13/18 20:39 97.9 F 76 18 109/67 05/13/18 18:41 75 14 109/66 05/13/18 18:31 73 10 L 115/70 05/13/18 18:21 79 11 L 115/70 05/13/18 18:11 85 21 115/70 05/13/18 18:00 72 18 115/70 05/13/18 17:51 77 13 109/66 05/13/18 17:41 70 18 99/59 05/13/18 17:30 69 14 104/64 05/13/18 17:21 67 14 94/57 05/13/18 17:11 65 14 99/57 05/13/18 17:00 62 14 99/57 05/13/18 16:51 63 13 99/59 05/13/18 16:45 62 14 99/59 05/13/18 16:31 64 15 92/54 05/13/18 16:15 65 15 82/50 05/13/18 16:01 64 18 88/48 05/13/18 15:45 66 30 H 110/65 05/13/18 15:31 68 24 110/65 05/13/18 15:15 72 19 111/67 05/13/18 15:00 75 13 111/67 05/13/18 14:45 67 14 118/63 05/13/18 14:31 72 23 118/63 05/13/18 14:15 69 17 110/65 05/13/18 14:00 74 21 110/65 05/13/18 13:47 75 17 130/81 05/13/18 13:31 80 14 130/81 05/13/18 13:15 75 18 118/63 05/13/18 13:00 75 19 118/63 05/13/18 12:45 79 13 127/72 05/13/18 12:31 78 11 L 127/72 05/13/18 12:15 77 13 130/81 05/13/18 12:00 81 8 L 130/81 05/13/18 11:49 97.7 F 73 127/72 05/13/18 11:47 97.7 F 73 12 127/72 05/13/18 11:45 70 26 H 127/72 05/13/18 11:31 73 18 Pulse Ox 05/14/18 05:32 94 05/14/18 01:16 05/14/18 00:16 05/13/18 23:54 98 05/13/18 23:35 05/13/18 22:00 100 05/13/18 20:39 100 05/13/18 18:41 05/13/18 18:31 05/13/18 18:21 05/13/18 18:11 05/13/18 18:00 98 05/13/18 17:51 05/13/18 17:41 99 05/13/18 17:30 99 05/13/18 17:21 99 05/13/18 17:11 97 05/13/18 17:00 97 05/13/18 16:51 97 05/13/18 16:45 98 05/13/18 16:31 98 05/13/18 16:15 97 05/13/18 16:01 98 05/13/18 15:45 98 05/13/18 15:31 98 05/13/18 15:15 99 05/13/18 15:00 100 05/13/18 14:45 97 05/13/18 14:31 97 05/13/18 14:15 98 05/13/18 14:00 100 05/13/18 13:47 98 05/13/18 13:31 97 02/08/19 13:15 99 05/13/18 13:00 99 05/13/18 12:45 100 05/13/18 12:31 100 05/13/18 12:15 100 05/13/18 12:00 05/13/18 11:49 100 05/13/18 11:47 100 05/13/18 11:45 96 05/13/18 11:31 100 - Physical Examination Neck: Positive: neck supple Cardiac: Positive: Reg Rate and Rhythm. Negative: Audible Murmur Lungs: Positive: clear to auscultation Abdomen: Positive: Soft, Active Bowel Sounds - Labs and Meds Cardiac Enzymes 05/13/18 05/14/18 Range/Units 13:07 05:46 AST 19 16 (5-40) units/L CBC 05/13/18 05/14/18 Range/Units 13:07 05:46 WBC 6.9 6.0 (4.5-11.0) K/mm3 RBC 3.55 L 3.45 L (3.65-5.03) M/mm3 Hgb 11.6 11.1 (10.1-14.3) gm/dl Hct 33.3 31.8 (30.3-42.9) % Plt Count 227 227 (140-440) K/mm3 Lymph # 2.2 1.1 L (1.2-5.4) K/mm3 [place] # 1.1 H 0.8 (0.0-0.8) K/mm3 Eos # 0.1 0.0 (0.0-0.4) K/mm3 Baso # 0.0 0.0 (0.0-0.1) K/mm3 Comprehensive Metabolic Panel 05/13/18 05/14/18 Range/Units 13:07 05:46 Sodium 140 138 (137-145) mmol/L Potassium 3.8 4.1 (3.6-5.0) mmol/L Chloride 104.1 106.4 (98-107) mmol/L Carbon Dioxide 27 25 (22-30) mmol/L BUN 21 H 22 H (7-17) mg/dL Creatinine 0.7 0.5 L (0.7-1.2) mg/dL Glucose 74 124 H (65-100) mg/dL Calcium 8.2 L 7.6 L (8.4-10.2) mg/dL AST 19 16 (5-40) units/L ALT 20 17 (7-56) units/L Alkaline Phosphatase 40 46 (35-129) units/L Total Protein 5.1 L 4.5 L (6.3-8.2) g/dL Albumin 3.3 L 3.0 L (3.9-5) g/dL - Imaging and Cardiology EKG: report reviewed (normal sinus rhythm heart rate of 73/m no arrhythmias no LVH)
[2018-05-14] MEDS ORDERED: NACL 0.9% 500 ML 500 ML IV ONE (11:00)
[2018-05-14] MEDS ORDERED: TORADOL IV ONE ×2 (11:00→16:00)
[2018-05-14] MEDS: NACL 0.9% 500 ML 500 ML IV SCH (13:24)
[2018-05-14] MEDS: LOVENOX SUB-Q SCH (13:25)
[2018-05-14] MEDS: NEURONTIN PO SCH ×3 (13:27→23:08)
--- NOTE | 2018-05-14 14:58 | Progress Note ---
Subjective Date of service: 05/14/18 Interval history: went over the current med list and the meds are multiple neurontin seroquel baclofern and valproic acid that can cause sedation Objective - Vital Sign Vital Signs - 12hr 05/14/18 05/14/18 05:32 12:38 Temperature 97.6 F 98.0 F Pulse Rate 86 95 H Respiratory 16 19 Rate Blood Pressure 80/43 90/40 O2 Sat by Pulse 94 100 Oximetry - Laboratory Findings CBC and BMP: 05/14/18 05:46 05/14/18 05:46 Abnormal Lab Findings: Abnormal Labs 05/13/18 05/13/18 05/14/18 13:07 13:07 05:46 RBC 3.55 L 3.45 L MCH 33 H MCHC 35 H 35 H [place] % (Auto) 15.7 H 12.7 H Lymph # 1.1 L [place] # 1.1 H BUN 21 H Creatinine Glucose Calcium 8.2 L Total Protein 5.1 L Albumin 3.3 L 05/14/18 05:46 RBC MCH MCHC [place] % (Auto) Lymph # [place] # BUN 22 H Creatinine 0.5 L Glucose 124 H Calcium 7.6 L Total Protein 4.5 L Albumin 3.0 L
[2018-05-14] MEDS: LOPRESSOR PO SCH ×2 (15:39→23:09)
[2018-05-15] MEDS: DESYREL PO SCH (05:22)
[2018-05-15] MEDS: NACL 0.9% 500 ML 500 ML IV SCH ×2 (05:22→11:51)
[2018-05-15] MEDS: SODIUM CHLORIDE FLUSH SYRINGE 10 ML IV SCH ×2 (05:23→09:35)
[2018-05-15] MEDS: SYNTHROID PO SCH (06:36)
[2018-05-15] MEDS: LOVENOX SUB-Q SCH (09:31)
[2018-05-15] MEDS: PEPCID PO SCH (09:33)
[2018-05-15] MEDS: LaMICtal PO SCH (09:33)
[2018-05-15] MEDS: LIORESAL PO SCH (09:33)
[2018-05-15] MEDS: BABY ASPIRIN PO SCH (09:33)
[2018-05-15] MEDS: LOPRESSOR PO SCH (09:34)
[2018-05-15] MEDS: NEURONTIN PO SCH ×2 (09:35→15:26)
--- NOTE | 2018-05-15 10:11 | Progress Note ---
Subjective Date of service: 05/15/18 Interval history: dictated a full note evry compliacated PMH on multiple meds and suspect med induced vertigo hx of Meniere's Disease Objective - Vital Sign Vital Signs - 12hr 05/14/18 05/14/18 05/14/18 22:34 22:41 23:09 Temperature 97.8 F 97.8 F Pulse Rate 79 76 Respiratory 18 18 Rate Blood Pressure 92/44 98/54 91/43 O2 Sat by Pulse 98 Oximetry 05/15/18 05/15/18 05:44 09:34 Temperature 97.7 F Pulse Rate 82 82 Respiratory 18 Rate Blood Pressure 95/53 95/53 O2 Sat by Pulse 96 Oximetry - Laboratory Findings CBC and BMP: 05/14/18 05:46 05/14/18 05:46 Abnormal Lab Findings: Abnormal Labs 05/13/18 05/13/18 05/14/18 13:07 13:07 05:46 RBC 3.55 L 3.45 L MCH 33 H MCHC 35 H 35 H [place] % (Auto) 15.7 H 12.7 H Lymph # 1.1 L [place] # 1.1 H BUN 21 H Creatinine Glucose Calcium 8.2 L Total Protein 5.1 L Albumin 3.3 L 05/14/18 05:46 RBC MCH MCHC [place] % (Auto) Lymph # [place] # BUN 22 H Creatinine 0.5 L Glucose 124 H Calcium 7.6 L Total Protein 4.5 L Albumin 3.0 L
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
--- NOTE | 2018-05-15 13:44 | Progress Note ---
Assessment and Plan Episodes of recurrent weakness/impaired consciousness/syncope which have not correlated with any heart rhythm or cardiac abnormality. Negative tilt table test 05/13/18 Echo 11/2017 revealed normal EF with mild-mod AI No arrhythmia noted on previous event monitoring at time of syncopal events Seizure disorder H/O Substance abuse Per patient last used methylamphetamines 2 months ago. Recommend: No further cardiac testing at this time Continue ongoing neurology evaluation Subjective Date of service: 05/15/18 Interval history: Pt is somnolent Objective Vital Signs Temp Pulse Resp BP Pulse Ox 05/15/18 13:18 98.1 F 78 14 93/52 100 05/15/18 09:34 82 95/53 05/15/18 05:44 97.7 F 82 18 95/53 96 05/14/18 23:09 76 91/43 05/14/18 22:41 97.8 F 18 98/54 05/14/18 22:34 97.8 F 79 18 92/44 98 05/14/18 22:00 14 05/14/18 15:39 104 H 94/42 - Physical Examination Neck: Positive: neck supple Cardiac: Positive: Reg Rate and Rhythm Lungs: Positive: clear to auscultation Abdomen: Positive: Soft, Active Bowel Sounds
--- NOTE | 2018-05-15 14:31 | Progress Note ---
Assessment and Plan - Patient Problems (1) Recurrent syncope Current Visit: Yes Status: Acute Plan to address problem: Workup negative till now Lexiscan not done Echo- not done (2) Hypertension Current Visit: Yes Status: Chronic Qualifiers: Hypertension type: essential hypertension Qualified Code(s): I10 - Essential (primary) hypertension Plan to address problem: We will decrease the metoprolol to once a day We will hold the triamterene and hydrochlorothiazide (3) Seizure disorder Current Visit: Yes Status: Chronic Plan to address problem: Continue Depakote Check Depakote level (4) Hypothyroidism (acquired) Current Visit: Yes Status: Chronic Plan to address problem: Continue Synthroid (5) Bipolar disorder Current Visit: Yes Status: Chronic Qualifiers: Active/Remission status: in remission of unspecified degree Qualified Code(s): F31.70 - Bipolar disorder, currently in remission, most recent episode unspecified Plan to address problem: Continue Seroquel and Vybrid (6) DVT prophylaxis Current Visit: Yes Status: Acute Plan to address problem: Continue Lovenox and GI prophylaxis Subjective Date of service: 05/14/18 Principal diagnosis: Recurrent syncope Interval history: Feeling better Objective - Constitutional Vitals: Vital Signs - 12hr 05/15/18 05/15/18 05/15/18 05:44 09:34 13:18 Temperature 97.7 F 98.1 F Pulse Rate 82 82 78 Respiratory 18 14 Rate Blood Pressure 95/53 95/53 93/52 O2 Sat by Pulse 96 100 Oximetry General appearance: Present: no acute distress, well-nourished - EENT Eyes: PERRL, EOM intact ENT: hearing intact, clear oral mucosa Ears: bilateral: normal - Neck Neck: supple, normal ROM - Respiratory Respiratory effort: normal Respiratory: bilateral: CTA - Breasts Breasts: normal - Cardiovascular Heart rate: 78 Rhythm: regular Heart Sounds: Present: S1 & S2. Absent: gallop, rub Extremities: pulses intact, No edema, normal color, Full ROM - Gastrointestinal General gastrointestinal: Present: soft, non-tender, non-distended, normal bowel sounds - Genitourinary Female genitourinary: normal - Integumentary Integumentary: clear, warm, dry - Musculoskeletal Musculoskeletal: 1, strength equal bilaterally - Neurologic Neurologic: moves all extremities - Psychiatric Psychiatric: memory intact, appropriate mood/affect, intact judgment & insight - Allied health notes Allied health notes reviewed: nursing, case management - Labs CBC & Chem 7: 05/14/18 05:46 05/14/18 05:46
--- NOTE | 2018-05-15 14:45 | Discharge Summary ---
Providers - Providers Date of Admission: 05/13/18 16:50 Date of discharge: 05/15/18 Attending physician: ROSHNI FLORES 05/13/18 20:39 Consult to Physician [CONS] Routine Comment: Consulting Provider: KARAN YANEZ Physician Instructions: Reason For Exam: syncope 05/14/18 14:43 Consult to Physician [CONS] Routine Comment: Consulting Provider: MAKENZIE SANCHEZ Physician Instructions: Reason For Exam: syncope Primary care physician: Feeling better Hospitalization Condition: Good Hospital course: (1) Recurrent syncope Current Visit: Yes Status: Acute Plan to address problem: Workup negative till now Lexiscan not done Echo- not done Syncope probably medication induced Had a long talk with patient. Bumex to be discontinued totally. W/u including MRI/MRA's/Tilt table negative till now Triamterene/Hctz prn for pedal edema (2) Hypertension Current Visit: Yes Status: Chronic Qualifiers: Hypertension type: essential hypertension Qualified Code(s): I10 - Essential (primary) hypertension Plan to address problem: We will decrease the metoprolol to once a day Discontinue Bumex (3) Seizure disorder Current Visit: Yes Status: Chronic Plan to address problem: Continue Depakote (4) Hypothyroidism (acquired) Current Visit: Yes Status: Chronic Plan to address problem: Continue Synthroid (5) Bipolar disorder Current Visit: Yes Status: Chronic Qualifiers: Active/Remission status: in remission of unspecified degree Qualified Code(s): F31.70 - Bipolar disorder, currently in remission, most recent episode unspecified Plan to address problem: Continue Seroquel and Vybrid Disposition: DC-01 TO HOME OR SELFCARE - Discharge Diagnoses (1) Recurrent syncope Status: Acute (2) Hypertension Status: Chronic Qualifiers: Hypertension type: essential hypertension Qualified Code(s): I10 - Essential (primary) hypertension (3) Seizure disorder Status: Chronic (4) Hypothyroidism (acquired) Status: Chronic (5) Bipolar disorder Status: Chronic Qualifiers: Active/Remission status: in remission of unspecified degree Qualified Code(s): F31.70 - Bipolar disorder, currently in remission, most recent episode unspecified (6) DVT prophylaxis Status: Acute Core Measure Documentation - Palliative Care Palliative Care/ Comfort Measures: Not Applicable - Core Measures Any of the following diagnoses?: none Exam - Constitutional Vitals: Temp Pulse Resp BP Pulse Ox 98.1 F 78 14 93/52 100 05/15/18 13:18 05/15/18 13:18 05/15/18 13:18 05/15/18 13:18 05/15/18 13:18 General appearance: Present: no acute distress, well-nourished - EENT Eyes: Present: PERRL ENT: hearing intact, clear oral mucosa - Neck Neck: Present: supple, normal ROM - Respiratory Respiratory effort: normal Respiratory: bilateral: CTA - Cardiovascular Heart Sounds: Present: S1 & S2. Absent: rub, click - Extremities Extremities: pulses symmetrical, No edema Peripheral Pulses: within normal limits - Abdominal General gastrointestinal: Present: soft, non-tender, non-distended, normal bowel sounds Female genitourinary: Present: normal - Integumentary Integumentary: Present: clear, warm, dry - Musculoskeletal Musculoskeletal: gait normal, strength equal bilaterally - Psychiatric Psychiatric: appropriate mood/affect, intact judgment & insight - Neurologic Neurologic: CNII-XII intact, moves all extremities Plan Activity: no restrictions Diet: low fat, low cholesterol, low salt Follow up with: PRIMARY CARE, [Referring] - 7 Days
[2018-05-15 16:49] VITALS: BP 100/68
--- NOTE | 2018-05-16 07:31 | Consultation ---
This is a note to Dr. Clarice Chaparro. This patient was evaluated at the request of Dr. Clarice Chaparro for discharge planning. I went over her medication list. By her notes, she is taking valproic acid, lamotrigine. She is taking Neurontin, she is taking Seroquel. She is taking Desyrel. She is taking Klonopin 0.5 mg 3 times a day. She variously has a diagnosis of stress disorder, anxiety, but also has a diagnosis of possibly having partial seizures. She sees a neurologist, but has never had a comprehensive EEG outpatient monitoring. She has a long history of anxiety, stress disorder. She states she fell and broke her hip, cannot work. She also describes issues involving being purplish, bluish sensation in her legs (while I examined this, I did not find evidence of this). She states that when she took a tilt table test, she blacked out, but was told her blood pressure was normal. She has periodic spasms of her arms after she takes the Seroquel, which is clearly a dystonic reaction. She is taking baclofen to control symptoms from this. Going over her history, she has added medication to her list of medicines she is taking. I think she has communicated symptoms to her psychiatrist and neurologist. She has also seen a vascular specialist. PHYSICAL EXAMINATION: At this point reveals her to be normal neurological exam, normal speech, normal affect. Responds well to simple questions, does not seem overly anxious, does not seem overly in a state of panic or hypomanic. She seems somewhat hyporeactive to the overall situation. IMPRESSION: This patient has possibly complicated case of polypharmacy and cannot even begin to explain what medicine she was taking including the overlap of valproic acid, lamotrigine, Neurontin, Desyrel, Seroquel, and Klonopin. I tried to approach this issue from the standpoint of speaking to her physicians about balancing out some of her medications because I think that she is developing periodic hypersomnia, probably due to Seroquel and, Desyrel, and the addition of the Klonopin. I am not sure the patient has grasped this and has intact understanding of her situation, but I told her to be certain to communicate this. At this point, she is cleared for discharge. JOB# [id number] HODAN/ADRIAN
== END 2018-05-15 19:46 | disposition home or self-care (01) | DRG 312 ==
LOC: ED 08:34 → CATHLABREC 08:34 → 3A 16:50
PROVIDERS: ADMIT Internal Medicine; ATTEND Internal Medicine
PROC: 4A02XFZ Measurement of Cardiac Rhythm, External Approach (ICD-10-PCS; principal; 2018-05-13)
PROC: 4A03XB1 Measurement of Arterial Pressure, Peripheral, External Approach (ICD-10-PCS; 2018-05-13)
DX: R55 Syncope and collapse (principal); I10 Essential (primary) hypertension; G40.909 Epilepsy, unspecified, not intractable, without status epilepticus; E03.9 Hypothyroidism, unspecified; F17.200 Nicotine dependence, unspecified, uncomplicated; F31.70 Bipolar disorder, currently in remission, most recent episode unspecified; T50.1X5A Adverse effect of loop [high-ceiling] diuretics, initial encounter; Z82.49 Family history of ischemic heart disease and other diseases of the circulatory system; Z79.82 Long term (current) use of aspirin; Z79.899 Other long term (current) drug therapy; Z88.8 Allergy status to other drugs, medicaments and biological substances; Z88.2 Allergy status to sulfonamides; Y92.098 Other place in other non-institutional residence as the place of occurrence of the external cause
CPT/HCPCS: 36415; 70450; 70544; 70547; 70551; 80053; 80164; 83036; 85025; 93005; 93010; 93660; G0378; J0461; J1100; J1200; J1650; J1885; J2765; J3010; J7030; J7040